=== PATIENT | female | born 1960 | race Two or more races ===

== ENCOUNTER 2019-09-05 18:50 | Emergency (ER) | payer OTHER, MEDICAID ==
[~2019-09-05] VITALS: Ht 149.9 cm; Wt 64.9 kg
[~2019-09-05 18:50] MED LIST: FOLI200T; LEFL1TAB3; OMEPRAZOLE DR 20 MG CAPSULE; PHEN-839; POLYETHYLENE GLYCOL 3350 POWD; SUCR1TAB; [UNRECOGNIZED DRUG - OTHER]
[2019-09-05 19:08] VITALS: BP 122/71
[2019-09-05] MEDS ORDERED: KETOROLAC TROMETH 60MG/2ML VIAL IM ONE (20:45)
== END 2019-09-06 03:24 | disposition home or self-care (01) ==
LOC: ER 18:53
DX: J06.9 Acute upper respiratory infection, unspecified (principal); M19.90 Unspecified osteoarthritis, unspecified site; K21.9 Gastro-esophageal reflux disease without esophagitis; Z88.6 Allergy status to analgesic agent; Z88.8 Allergy status to other drugs, medicaments and biological substances; Z79.899 Other long term (current) drug therapy
CPT/HCPCS: 96372; 99283; J1885

== ENCOUNTER 2019-11-22 16:18 | Emergency (ER) | payer OTHER, MEDICAID ==
[~2019-11-22] VITALS: Ht 157.5 cm; Wt 63.5 kg
[2019-11-22] MEDS ORDERED: SODIUM CHLORIDE 0.9% 1,000 ML IV ONE ×2 (18:04)
[2019-11-22] MEDS ORDERED: LORazepam 2MG/ML-1ML VIAL IV ONE (18:15)
[2019-11-22 18:21] LABS: Basophils # (auto) 0 10 ^3/uL (0-0.2); Basophils % (auto) 0.3 % (0.0-2.0); Eosinophils # (auto) 0.1 10 ^3/uL (0-0.8); Eosinophils % (auto) 1.5 % (0.0-7.0); Hematocrit 37.8 % (36.0-46.0); Hemoglobin 12.8 g/dL (12.2-16.2); Lymphocytes # (auto) 1.4 10 ^3/uL (0.4-5.4); Lymphocytes % (auto) 21.7 % (10.0-50.0); Mean Corpuscular Hemoglobin 30.1 pg (28.0-32.0); Mean Corpuscular Hgb Conc. 33.9 g/dL (32.0-36.0); Mean Corpuscular Volume 88.7 fL (80.0-100.0); Monocytes # (auto) 0.2 10 ^3/uL (0-1.3); Monocytes % (auto) 3.7 % (0.0-12.0); Neutrophils # (auto) 4.8 10 ^3/uL (1.6-8.6); Neutrophils % (auto) 72.8 % (37.0-80.0); Platelet Count (auto) 263 10^3/uL (140-450); Red Blood Cells 4.26 10^6/uL (4.0-5.20); Red Cell Distribution Width 12.7 % (11.8-14.3); White Blood Cell 6.6 10^3/uL (4.4-10.8)
[2019-11-22 18:35] LABS: Albumin 3.8 g/dL (3.4-5.0); Anion Gap 8 (5-15); Blood Urea Nitrogen 14 mg/dL (7-18); Calcium 8.9 mg/dL (8.5-10.1); Carbon Dioxide 28 mmol/L (21-32); Chloride 104 mmol/L (98-107); Glucose 103 mg/dL (74-106); Potassium 3.8 mmol/L (3.5-5.1); Sodium 140 mmol/L (136-145)
[2019-11-22 18:44] LABS: Alanine Aminotransferase 25 U/L (13-56); Alkaline Phosphatase 114 U/L (45-117); Aspartate Aminotransferase 18 U/L (15-37); BUN/Creatinine Ratio 24.1; Bilirubin, Total 0.4 mg/dL (0.2-1.0); GFR African American 136 mL/min; GFR Non-African American 113 mL/min; Total Protein 8.4 g/dL (6.4-8.2)
[2019-11-22 20:42] VITALS: BP 116/49
[2019-11-22 20:50] LABS: Urine Bacteria NONE SEEN /hpf (None Seen); Urine Blood Negative /uL (Negative); Urine Mucus FEW (None Seen); Urine Specific Gravity 1.025 (1.001-1.035); Urine WBC 1 /hpf (0 - 5)
== END 2019-11-22 21:16 | disposition home or self-care (01) ==
LOC: ER 16:18
DX: H81.12 Benign paroxysmal vertigo, left ear (principal); E86.0 Dehydration; K21.9 Gastro-esophageal reflux disease without esophagitis; Z90.49 Acquired absence of other specified parts of digestive tract
CPT/HCPCS: 36415; 70450; 80053; 81001; 84484; 85025; 93005; 96360; 99285; J7030

== ENCOUNTER 2019-12-21 05:57 | Emergency (ER) | payer OTHER, MEDICAID ==
[~2019-12-21] VITALS: Ht 144.8 cm; Wt 64.4 kg
[2019-12-21 07:01] LABS: Basophils # (auto) 0 10 ^3/uL (0-0.2); Basophils % (auto) 0.3 % (0.0-2.0); Eosinophils # (auto) 0.3 10 ^3/uL (0-0.8); Eosinophils % (auto) 4.6 % (0.0-7.0); Hematocrit 36.3 % (36.0-46.0); Hemoglobin 12.4 g/dL (12.2-16.2); Lymphocytes # (auto) 1.3 10 ^3/uL (0.4-5.4); Lymphocytes % (auto) 23.9 % (10.0-50.0); Mean Corpuscular Hemoglobin 30.6 pg (28.0-32.0); Mean Corpuscular Hgb Conc. 34.2 g/dL (32.0-36.0); Mean Corpuscular Volume 89.7 fL (80.0-100.0); Monocytes # (auto) 0.3 10 ^3/uL (0-1.3); Monocytes % (auto) 5.2 % (0.0-12.0); Neutrophils # (auto) 3.6 10 ^3/uL (1.6-8.6); Platelet Count (auto) 227 10^3/uL (140-450); Red Blood Cells 4.05 10^6/uL (4.0-5.20); Red Cell Distribution Width 12.7 % (11.8-14.3); White Blood Cell 5.5 10^3/uL (4.4-10.8)
[2019-12-21 07:21] LABS: Alanine Aminotransferase 27 U/L (13-56); Albumin 3.3 g/dL (3.4-5.0); Anion Gap 8 (5-15); Aspartate Aminotransferase 18 U/L (15-37); BUN/Creatinine Ratio 33.3; Blood Urea Nitrogen 19 mg/dL (7-18); Calcium 8.5 mg/dL (8.5-10.1); Carbon Dioxide 23 mmol/L (21-32); Chloride 107 mmol/L (98-107); GFR African American 139 mL/min; GFR Non-African American 115 mL/min; Glucose 113 mg/dL (74-106); Sodium 138 mmol/L (136-145)
[2019-12-21 07:25] LABS: Alkaline Phosphatase 108 U/L (45-117); Bilirubin, Total 0.3 mg/dL (0.2-1.0); Total Protein 7.8 g/dL (6.4-8.2)
[2019-12-21 08:53] LABS: Urine Bacteria NONE SEEN /hpf (None Seen); Urine Blood 1+ /uL (Negative); Urine Specific Gravity 1.016 (1.001-1.035); Urine WBC 1 /hpf (0 - 5)
[2019-12-21 11:04] VITALS: BP 119/68
== END 2019-12-21 11:39 | disposition home or self-care (01) ==
LOC: ER 05:57
DX: R07.89 Other chest pain (principal); J02.9 Acute pharyngitis, unspecified; J40 Bronchitis, not specified as acute or chronic; K21.9 Gastro-esophageal reflux disease without esophagitis; Z90.49 Acquired absence of other specified parts of digestive tract; Z88.6 Allergy status to analgesic agent
CPT/HCPCS: 36415; 71045; 80053; 81001; 84484; 85025; 87070; 87804; 87880; 93005

== ENCOUNTER 2020-10-09 18:42 | Emergency (ER) | payer OTHER, MEDICAID ==
[~2020-10-09] VITALS: Ht 152.4 cm; Wt 64.9 kg
[2020-10-09 19:33] LABS: Urine WBC None Seen /hpf (0 - 5)
[2020-10-09 19:40] LABS: Basophils # (auto) 0 10 ^3/uL (0-0.2); Basophils % (auto) 0.4 % (0.0-2.0); Eosinophils # (auto) 0.3 10 ^3/uL (0-0.8); Hematocrit 35.2 % (36.0-46.0); Hemoglobin 12.2 g/dL (12.2-16.2); Lymphocytes # (auto) 2.2 10 ^3/uL (0.4-5.4); Lymphocytes % (auto) 38.4 % (10.0-50.0); Mean Corpuscular Hemoglobin 30.7 pg (28.0-32.0); Mean Corpuscular Hgb Conc. 34.8 g/dL (32.0-36.0); Mean Corpuscular Volume 88.2 fL (80.0-100.0); Monocytes # (auto) 0.4 10 ^3/uL (0-1.3); Monocytes % (auto) 7.3 % (0.0-12.0); Neutrophils # (auto) 2.8 10 ^3/uL (1.6-8.6); Neutrophils % (auto) 48.9 % (37.0-80.0); Nucleated Red Blood Cells % 0.1 %; Platelet Count (auto) 209 10^3/uL (140-450); Red Blood Cells 3.99 10^6/uL (4.0-5.20); Red Cell Distribution Width 13.1 % (11.8-14.3); White Blood Cell 5.8 10^3/uL (4.4-10.8)
[2020-10-09 19:43] LABS: Urine Bacteria NONE SEEN /hpf (None Seen); Urine Blood Negative /uL (Negative); Urine Specific Gravity 1.013 (1.001-1.035)
[2020-10-09 19:56] LABS: Albumin 3.5 g/dL (3.4-5.0); Anion Gap 5 (5-15); Blood Urea Nitrogen 15 mg/dL (7-18); Calcium 8.1 mg/dL (8.5-10.1); Carbon Dioxide 28 mmol/L (21-32); Chloride 107 mmol/L (98-107); Glucose 97 mg/dL (74-106); Potassium 3.6 mmol/L (3.5-5.1); Sodium 140 mmol/L (136-145)
[2020-10-09 20:00] LABS: Alcohol, Urine < 3.0 mg/dL (0-10); Amphetamine Screen, Urine NEGATIVE (NEGATIVE); Barbiturate Scree,Urine NEGATIVE (NEGATIVE); Benzodiazephine Screen, Urine NEGATIVE (NEGATIVE); Cannabinoid Screen, Urine NEGATIVE (NEGATIVE); Cocaine Screen, Urine NEGATIVE (NEGATIVE); Opiate Scree,Urine NEGATIVE (NEGATIVE); Phencyclidine Screen, Urine NEGATIVE (NEGATIVE)
[2020-10-09 20:03] LABS: Alanine Aminotransferase 24 U/L (13-56); Alkaline Phosphatase 120 U/L (45-117); Aspartate Aminotransferase 14 U/L (15-37); BUN/Creatinine Ratio 30.6; Bilirubin, Total 0.2 mg/dL (0.2-1.0); GFR African American 165 mL/min; GFR Non-African American 136 mL/min
[2020-10-09 20:04] LABS: INR 0.92 (0.9-1.15); Partial Thromboplastin Time 29.1 sec (23.0-31.2)
[2020-10-09 22:00] VITALS: BP 112/58
== END 2020-10-09 20:56 | disposition home or self-care (01) ==
LOC: ER 18:42
DX: M48.02 Spinal stenosis, cervical region (principal); J32.9 Chronic sinusitis, unspecified; M50.921 Unspecified cervical disc disorder at C4-C5 level; F41.9 Anxiety disorder, unspecified
CPT/HCPCS: 36415; 70450; 71045; 72125; 80053; 80307; 81001; 83880; 84443; 84484; 85025; 85379; 85610; 85730; 93005

== ENCOUNTER 2021-06-04 13:39 | Emergency (ER) | payer OTHER, MEDICAID ==
[~2021-06-04] VITALS: Ht 154.9 cm; Wt 64.4 kg
[2021-06-04 15:20] VITALS: BP 132/56
== END 2021-06-04 15:26 | disposition home or self-care (01) ==
LOC: ER 13:39
DX: R07.89 Other chest pain (principal); K21.9 Gastro-esophageal reflux disease without esophagitis; Z90.49 Acquired absence of other specified parts of digestive tract; Z79.899 Other long term (current) drug therapy; Z88.8 Allergy status to other drugs, medicaments and biological substances; Z20.822 Contact with and (suspected) exposure to COVID-19
CPT/HCPCS: 36415; 71045; 87426; 93005

== ENCOUNTER 2021-06-17 13:38 | Emergency (ER) | payer OTHER, MEDICAID ==
[~2021-06-17] VITALS: Ht 149.9 cm; Wt 62.1 kg
[2021-06-17] MEDS ORDERED: ASPirin 81 mg TAB PO ONE (14:00)
[2021-06-17 14:15] LABS: Basophils # (auto) 0 10 ^3/uL (0-0.2); Basophils % (auto) 0.4 % (0.0-2.0); Eosinophils # (auto) 0.1 10 ^3/uL (0-0.8); Eosinophils % (auto) 2.4 % (0.0-7.0); Hematocrit 34.5 % (36.0-46.0); Hemoglobin 11.8 g/dL (12.2-16.2); Lymphocytes # (auto) 2.4 10 ^3/uL (0.4-5.4); Lymphocytes % (auto) 40.2 % (10.0-50.0); Mean Corpuscular Hemoglobin 30.6 pg (28.0-32.0); Mean Corpuscular Hgb Conc. 34.3 g/dL (32.0-36.0); Mean Corpuscular Volume 89.1 fL (80.0-100.0); Monocytes # (auto) 0.5 10 ^3/uL (0-1.3); Monocytes % (auto) 7.6 % (0.0-12.0); Neutrophils % (auto) 49.4 % (37.0-80.0); Red Blood Cells 3.87 10^6/uL (4.0-5.20); Red Cell Distribution Width 12.8 % (11.8-14.3)
[2021-06-17 14:31] LABS: Alanine Aminotransferase 26 U/L (13-56); Albumin 3.4 g/dL (3.4-5.0); Anion Gap 3 (5-15); Calcium 8.2 mg/dL (8.5-10.1); Carbon Dioxide 28 mmol/L (21-32); Chloride 106 mmol/L (98-107); Glucose 93 mg/dL (74-106); Potassium 3.9 mmol/L (3.5-5.1); Sodium 137 mmol/L (136-145)
[2021-06-17 14:36] LABS: Alkaline Phosphatase 104 U/L (45-117); Aspartate Aminotransferase 14 U/L (15-37); BUN/Creatinine Ratio 25.5; Bilirubin, Total 0.3 mg/dL (0.2-1.0); Blood Urea Nitrogen 14 mg/dL (7-18); GFR African American 145 mL/min; GFR Non-African American 119 mL/min; Total Protein 7.3 g/dL (6.4-8.2)
[2021-06-17 16:38] VITALS: BP 101/64
== END 2021-06-17 16:38 | disposition home or self-care (01) ==
LOC: ER 13:39
DX: R07.89 Other chest pain (principal); F41.9 Anxiety disorder, unspecified; D64.9 Anemia, unspecified; K21.9 Gastro-esophageal reflux disease without esophagitis; Z90.49 Acquired absence of other specified parts of digestive tract; Z88.6 Allergy status to analgesic agent
CPT/HCPCS: 36415; 71045; 80053; 84443; 84484; 85025; 93005

== ENCOUNTER 2022-01-03 17:03 | Emergency (ER) | payer OTHER, MEDICAID ==
[~2022-01-03] VITALS: Ht 152.4 cm; Wt 63.5 kg
[2022-01-03 17:19] VITALS: BP 107/47
[2022-01-03] MEDS ORDERED: MECLIZINE HCL 25 MG TAB PO ONE (19:00)
[2022-01-03 19:20] LABS: Basophils # (auto) 0 10 ^3/uL (0-0.2); Basophils % (auto) 0.2 % (0.0-2.0); Eosinophils # (auto) 0.2 10 ^3/uL (0-0.8); Eosinophils % (auto) 2.3 % (0.0-7.0); Hemoglobin 13.6 g/dL (12.2-16.2); Lymphocytes # (auto) 2.6 10 ^3/uL (0.4-5.4); Lymphocytes % (auto) 36.9 % (10.0-50.0); Mean Corpuscular Hemoglobin 29.7 pg (28.0-32.0); Mean Corpuscular Volume 87.4 fL (80.0-100.0); Monocytes # (auto) 0.3 10 ^3/uL (0-1.3); Monocytes % (auto) 4.6 % (0.0-12.0); Neutrophils # (auto) 3.9 10 ^3/uL (1.6-8.6); Red Blood Cells 4.58 10^6/uL (4.0-5.20); Red Cell Distribution Width 12.6 % (11.8-14.3); White Blood Cell 6.9 10^3/uL (4.4-10.8)
[2022-01-03 19:31] LABS: Albumin 3.7 g/dL (3.4-5.0); BUN/Creatinine Ratio 25.4; Calcium 8.8 mg/dL (8.5-10.1); Potassium 4.1 mmol/L (3.5-5.1)
[2022-01-03 19:33] LABS: Bilirubin, Total 0.2 mg/dL (0.2-1.0); Total Protein 8.1 g/dL (6.4-8.2)
== END 2022-01-03 21:09 | disposition home or self-care (01) ==
LOC: ER 17:03
DX: H81.10 Benign paroxysmal vertigo, unspecified ear (principal); K21.9 Gastro-esophageal reflux disease without esophagitis; Z90.49 Acquired absence of other specified parts of digestive tract; Z88.8 Allergy status to other drugs, medicaments and biological substances
CPT/HCPCS: 36415; 70450; 80053; 84484; 85025; 93005; 99285; J8597

== ENCOUNTER 2022-02-20 05:01 | Emergency (ER) | payer OTHER, MEDICAID ==
[~2022-02-20] VITALS: Ht 152.4 cm; Wt 65.3 kg
[2022-02-20 08:36] VITALS: BP 125/55
== END 2022-02-20 09:01 | disposition home or self-care (01) ==
LOC: ER 05:01
DX: S00.03XA Contusion of scalp, initial encounter (principal); K21.9 Gastro-esophageal reflux disease without esophagitis; Z90.49 Acquired absence of other specified parts of digestive tract; W18.00XA Striking against unspecified object with subsequent fall, initial encounter; Y93.89 Activity, other specified; Y92.89 Other specified places as the place of occurrence of the external cause; Y99.8 Other external cause status
CPT/HCPCS: 70450

== ENCOUNTER 2024-02-16 18:58 | Emergency (ER) | payer MEDICAID, OTHER ==
[~2024-02-16] VITALS: Ht 152.4 cm; Wt 61.8 kg
[2024-02-16 20:38] LABS: Urine Bacteria None Seen /hpf (None Seen)
[2024-02-16 20:54] LABS: Urine Blood 2+ /uL (Negative); Urine Clarity Clear (Clear); Urine Color Light-Yellow (Yellow); Urine Mucus FEW (None Seen); Urine Protein, UAD Negative (Negative); Urine Specific Gravity 1.023 (1.001-1.035); Urine Urobilinogen Normal (Negative); Urine WBC 1 /hpf (0 - 5)
[2024-02-16] MEDS ORDERED: CIPR0.3S19 OP (21:52)
[2024-02-16] MEDS: FLUORESCEIN SOD OPTH TEST STRIP EACHEYE ONE (22:00)
[2024-02-16 22:45] LABS: Erythrocyte Sedimentation Rate 41 mm/hr (0-20)
[2024-02-16] MEDS ORDERED: PRED20TA2 PO (22:58)
[2024-02-16] MEDS: predniSONE 20 MG TAB PO ONE (23:48)
[2024-02-16 23:50] VITALS: BP 117/61; PULSE 72; RESP 18; TEMP 98.1; O2SAT 98
== END 2024-02-16 23:55 | disposition home or self-care (01) ==
LOC: ER 18:58
DX: S05.02XA Injury of conjunctiva and corneal abrasion without foreign body, left eye, initial encounter (principal); H11.32 Conjunctival hemorrhage, left eye; M06.9 Rheumatoid arthritis, unspecified; F32.A Depression, unspecified; K21.9 Gastro-esophageal reflux disease without esophagitis; Z90.49 Acquired absence of other specified parts of digestive tract; Z88.8 Allergy status to other drugs, medicaments and biological substances; Z88.5 Allergy status to narcotic agent; Z88.6 Allergy status to analgesic agent; X58.XXXA Exposure to other specified factors, initial encounter; Y93.89 Activity, other specified; Y92.89 Other specified places as the place of occurrence of the external cause; Y99.8 Other external cause status
CPT/HCPCS: 36415; 81001; 85652; 99283; J7512

== ENCOUNTER 2024-05-02 17:03 | Emergency (ER) | payer OTHER ==
[~2024-05-02] VITALS: Ht 152.4 cm; Wt 60.0 kg
[~2024-05-02 17:03] MED LIST changes: +CIPR0.3S19 OP; +PRED20TA2 PO
[2024-05-02] MEDS: SODIUM CHLORIDE 0.9% 1,000 ML IV ONE (18:49)
[2024-05-02] MEDS: MECLIZINE HCL 25 MG TAB PO ONE (18:54)
[2024-05-02] MEDS: ONDANSETRON HCL 4 MG/2 ML VIAL IV ONE (19:40)
[2024-05-02 19:46] LABS: Basophils # (auto) 0 10 ^3/uL (0-0.2); Basophils % (auto) 0.3 % (0.0-2.0); Eosinophils # (auto) 0.2 10 ^3/uL (0-0.8); Eosinophils % (auto) 2.6 % (0.0-7.0); Hematocrit 35.8 % (36.0-46.0); Hemoglobin 11.8 g/dL (12.2-16.2); Lymphocytes # (auto) 2.2 10 ^3/uL (0.4-5.4); Lymphocytes % (auto) 34.7 % (10.0-50.0); Mean Corpuscular Hemoglobin 29.6 pg (28.0-32.0); Mean Corpuscular Hgb Conc. 32.9 g/dL (32.0-36.0); Mean Corpuscular Volume 89.9 fL (80.0-100.0); Monocytes # (auto) 0.4 10 ^3/uL (0-1.3); Monocytes % (auto) 5.6 % (0.0-12.0); Neutrophils # (auto) 3.6 10 ^3/uL (1.6-8.6); Neutrophils % (auto) 56.8 % (37.0-80.0); Red Blood Cells 3.98 10^6/uL (4.0-5.20); Red Cell Distribution Width 12.4 % (11.8-14.3); White Blood Cell 6.3 10^3/uL (4.4-10.8)
[2024-05-02 20:11] LABS: Alanine Aminotransferase 23 U/L (7-40); Alkaline Phosphatase 107 U/L (46-116); Anion Gap 2 (5-15); Aspartate Aminotransferase 14 U/L (13-40); BUN/Creatinine Ratio 27.6 (10.0-20.0); Blood Urea Nitrogen 16 mg/dL (9-23); Calcium 8.9 mg/dL (8.7-10.4); Carbon Dioxide 31 mmol/L (20-30); Chloride 106 mmol/L (98-107); Glucose 96 mg/dL (74-106); Potassium 4.3 mmol/L (3.5-5.1); Sodium 139 mmol/L (136-145)
[2024-05-02 20:12] LABS: Albumin 3.9 g/dL (3.2-4.8); Bilirubin, Total 0.3 mg/dL (0.2-1.0); Total Protein 6.5 g/dL (5.7-8.2)
[2024-05-02 20:38] LABS: Urine Bacteria None Seen /hpf (None Seen)
[2024-05-02 20:50] LABS: Urine Blood TRACE /uL (Negative); Urine Clarity Clear (Clear); Urine Color Light-Yellow (Yellow); Urine Mucus FEW (None Seen); Urine Protein, UAD Negative (Negative); Urine Specific Gravity 1.011 (1.001-1.035); Urine Urobilinogen Normal (Negative); Urine WBC 1 /hpf (0 - 5)
[2024-05-02] MEDS ORDERED: MECL12.586 PO (20:51)
[2024-05-02 21:10] VITALS: BP 117/47; PULSE 59; RESP 18; TEMP 97.6; O2SAT 99
== END 2024-05-02 21:14 | disposition home or self-care (01) ==
LOC: ER 17:03
DX: H81.10 Benign paroxysmal vertigo, unspecified ear (principal); K21.9 Gastro-esophageal reflux disease without esophagitis; Z88.6 Allergy status to analgesic agent; Z90.49 Acquired absence of other specified parts of digestive tract
CPT/HCPCS: 36415; 80053; 81001; 85025; 96360; 99283; J7030; J8597